=== PATIENT | male | born 1965 | race Caucasian/White ===

== ENCOUNTER 2018-07-26 10:24 | Observation (INO) | payer OTHER ==
[2018-07-26 11:22] LABS: BASO % 0.9 % (0-2.0); EOS % 2.3 % (0-4.5); HEMATOCRIT 45.9 % (35.4-49); HEMOGLOBIN 14.8 GM/dl (11.7-16.9); LYMPH % 34.1 % (8-40); MCH 27.4 pg (25.7-33.7); MCHC 32.3 g/dl (32.0-35.9); MEAN CELL VOLUME 84.9 fl (80-96); MEAN PLT VOLUME 9.7 fl (7.5-11.1); MONO % 7.1 % (3.8-10.2); NEUT % 55.6 % (42.8-82.8); PLATELET COUNT 206 K/MM3 (134-434); RDW 12.8 % (11.9-15.9); WHITE BLOOD COUNT 7.5 K/mm3 (4.0-10.8)
[2018-07-26 11:30] LABS: ALK PHOS 107 U/L (32-92); ANION GAP 5 MMOL/L (8-16); BILIRUBIN,TOTAL 0.5 mg/dl (0.2-1.0); BLOOD UREA NITROGEN 18 mg/dl (7-18); CALCIUM 9.2 mg/dl (8.4-10.2); CHLORIDE 109 mmol/L (98-107); CO2 24 mmol/L (22-28); CREATININE 0.9 mg/dl (0.6-1.3); GLUCOSE,RANDOM 108 mg/dl (74-106); MAGNESIUM 2.1 mg/dL (1.8-2.4); POTASSIUM 4.2 mmol/L (3.5-5.1); SGOT/AST 26 U/L (10-42); SGPT/ALT 28 U/L (10-40); SODIUM 138 mmol/L (136-145); TOT PROT 7.2 g/dl (6.4-8.3)
--- NOTE | 2018-07-26 11:33 | PDOC ---
History of Present Illness - General History Source: Patient Exam Limitations: No Limitations - History of Present Illness Initial Comments: 07/26/18 12:35 53 yo M with no past medical history (last saw his PMD 3 years ago) presents to the emergency department with chest pain that woke him from sleep at 6am. Per the patient, he states the pain is located on both sides of his chest, sudden onset, 6/10, constant, described as stabbing, and no aggravating or elieving factors. Denies the pain worsens with exertion, radiates to the neck/arms/back. Endorses having acid in his mouth prior to presentation. Denies the following: fevers, chills, nausea, vomiting, SOB, abdominal pain, traumatic events, diarrhea, constipation, dysuria, hematuria, hematochezia, and leg pain/swelling Familial hx: Paternal [place] (83 years old) Pmhx: None Shx: Right elbow Meds: None Allergies: NKDA Social: Denies tobacco, alcohol, and substance abuse. <Yuri Montanez - Last Filed: 07/27/18 10:51> <Glory Arnold - Last Filed: 07/29/18 22:19> - General Chief Complaint: Chest Pain Stated Complaint: CHEST PAIN Time Seen by Provider: 07/26/18 10:34 Past History - Past Medical History COPD: No - Suicide/Smoking/Psychosocial Hx Smoking History: Never smoked Hx Alcohol Use: Yes (RARE) Drug/Substance Use Hx: No <Yuri Montanez - Last Filed: 07/27/18 10:51> <Glory Arnold - Last Filed: 07/29/18 22:19> - Past Medical History Allergies/Adverse Reactions: Allergies Allergy/AdvReac Type Severity Reaction Status Date / Time No Known Allergies Allergy Unverified 07/26/18 10:29 Home Medications: Ambulatory Orders NK [No Known Home Medication] 07/26/18 Review of Systems - Review of Systems Able to Perform ROS?: Yes Is the patient limited Niuean proficient: No Constitutional: No: Chills, Diaphoresis, Fever HEENTM: No: Eye Pain, Recent change in vision, Ear Pain, Nose Pain, Throat Pain , Mouth Pain Respiratory: No: Cough, Shortness of Breath, SOB with Exertion, Hemoptysis Cardiac (ROS): Yes: Chest Pain. No: Lightheadedness, Palpitations, Syncope, Chest Tightness ABD/GI: No: Constipated, Diarrhea, Nausea, Poor Appetite, Poor Fluid Intake, Rectal Bleeding, Vomiting, Indigestion, Abdominal cramping, Tarry Stools : No: Burning, Dysuria, Hematuria, Urgency Musculoskeletal: No: Back Pain, Joint Pain, Neck Pain Integumentary: No: Bruising, Dryness, Erythema, Lesions, Lumps, Rash Neurological: No: Headache, Numbness, Tingling, Tremors, Ataxia, Dizziness Psychiatric: No: Stressors Endocrine: No: Unexplained Weight Gain Hematologic/Lymphatic: No: Anemia <TaconiteYuri - Last Filed: 07/27/18 10:51> *Physical Exam - Vital Signs Last Vital Signs Temp Pulse Resp BP Pulse Ox 98.6 F 69 15 134/82 97 07/26/18 10:29 07/26/18 11:00 07/26/18 11:00 07/26/18 11:00 07/26/18 11:00 - Physical Exam General Appearance: Yes: Nourished, Appropriately Dressed. No: Apparent Distress, Alcohol on Breath, Intoxicated HEENT: positive: EOMI, PETEY, Normal Voice, Symmetrical, Pharynx Normal, Hearing Grossly Normal. negative: Pale Conjunctivae, Scleral Icterus (R), Scleral Icterus (L), Muffled/Hoarse voice, Pharyngeal Erythema, Tonsillar Exudate, Tonsillar Erythema, Nasal Congestion, Sinus Tenderness, Excessive drooling Neck: positive: Trachea midline. negative: Tender, Lymphadenopathy (R), Lymphadenopathy (L), Tender lateral, Tender midline Respiratory/Chest: positive: Chest Tender (reproducible pain), Lungs Clear, Normal Breath Sounds. negative: Respiratory Distress, Accessory Muscle Use, Paradoxal Breathing, Crackles, Rales, Rhonchi, Stridor, Wheezing, Hyperresonant Cardiovascular: positive: Regular Rhythm, Regular Rate, S1, S2. negative: Systolic Murmur Gastrointestinal/Abdominal: positive: Normal Bowel Sounds, Tender (epigastric tenderness), Flat, Soft Lymphatic: negative: Adenopathy Musculoskeletal: positive: Normal Inspection. negative: CVA Tenderness, Vertebral Tenderness Extremity: positive: Normal Capillary Refill, Normal Inspection, Normal Range of Motion. negative: Tender Integumentary: positive: Normal Color, Dry, Warm. 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 negative: EOM Palsy, Sensory Deficit <Yuri Montanez - Last Filed: 07/27/18 10:51> - Vital Signs Last Vital Signs Temp Pulse Resp BP Pulse Ox 97.6 F 63 18 125/73 96 07/27/18 14:00 07/27/18 14:00 07/27/18 16:00 07/27/18 14:00 07/27/18 16:00 <Glory Arnold - Last Filed: 07/29/18 22:19> Moderate Sedation - Procedure Monitoring Vital Signs: Procedure Monitoring Vital Signs Temperature 98.6 F 07/26/18 10:29 Pulse Rate 69 07/26/18 11:00 Respiratory Rate 15 07/26/18 11:00 Blood Pressure 134/82 07/26/18 11:00 O2 Sat by Pulse Oximetry (%) 97 07/26/18 11:00 <Yuri Montanez - Last Filed: 07/27/18 10:51> - Procedure Monitoring Vital Signs: Procedure Monitoring Vital Signs Temperature 97.6 F 07/27/18 14:00 Pulse Rate 63 07/27/18 14:00 Respiratory Rate 18 07/27/18 16:00 Blood Pressure 125/73 07/27/18 14:00 O2 Sat by Pulse Oximetry (%) 96 07/27/18 16:00 <Glory Arnold - Last Filed: 07/29/18 22:19> Heart Score/ECG Review - History History: Moderately suspicious - Electrocardiogram EKG: Normal - Age Age: 45-65 - Risk Factors Risk Factors Heart Score: Yes Positive family hx of cardiac disease Based on the list above the patient has:: 1-2 risk factors - Troponin Troponin: </= normal limit - Score Heart Score - Total: 3 - ECG Intrepretation Comment:: 07/26/18 12:41 ventricular rate is 62 bpm, OK 180 ms, QRS is 106, and QTc is 403 ms. Normal sinus rhythm without ST elevations and depressions without arrhythmias. <Yuri Montanez - Last Filed: 07/27/18 10:51> ED Treatment Course - LABORATORY CBC & Chemistry Diagram: 07/27/18 07:35 07/27/18 07:35 - ADDITIONAL ORDERS Additional order review: Laboratory Results 07/26/18 11:00 Sodium 138 Potassium 4.2 Chloride 109 H Carbon Dioxide 24 Anion Gap 5 L BUN 18 Creatinine 0.9 Creat Clearance w eGFR > 60 Random Glucose 108 H Calcium 9.2 Magnesium 2.1 Total Bilirubin 0.5 AST 26 ALT 28 Alkaline Phosphatase 107 H Total Protein 7.2 Albumin 4.0 07/26/18 11:00 RBC 5.40 MCV 84.9 MCHC 32.3 RDW 12.8 MPV 9.7 Neutrophils % 55.6 Lymphocytes % 34.1 Monocytes % 7.1 Eosinophils % 2.3 Basophils % 0.9 <Yuri Montanez - Last Filed: 07/27/18 10:51> - LABORATORY CBC & Chemistry Diagram: 07/27/18 07:35 07/27/18 07:35 - ADDITIONAL ORDERS Additional order review: 07/26/18 11:00 RBC 5.40 MCV 84.9 MCHC 32.3 RDW 12.8 MPV 9.7 Neutrophils % 55.6 Lymphocytes % 34.1 Monocytes % 7.1 Eosinophils % 2.3 Basophils % 0.9 - RADIOLOGY Radiology Studies Ordered: Category Date Time Status CHEST PA & LAT [RAD] Stat Radiology 07/26/18 10:34 Completed - Medications Given in the ED: ED Medications Discontinued Medications Generic Name Dose Route Start Last Admin Trade Name Debbi PRN Reason Stop Dose Admin Aspirin 81 mg 07/26/18 19:30 07/27/18 09:46 Ecotrin - PO 81 mg DAILY KEREN Administration <Glory Arnold - Last Filed: 07/29/18 22:19> Medical Decision Making - Medical Decision Making 53 yo M with no past medical history (last saw his PMD 3 years ago) presents to the emergency department with chest pain that woke him from sleep at 6am. Initial vitals: Initial Vital Signs Temp Pulse Resp BP Pulse Ox 98.6 F 70 16 167/83 97 07/26/18 10:29 07/26/18 10:29 07/26/18 10:29 07/26/18 10:29 07/26/18 10:29 Work up: acs vs PNA vs costochondritis vs pleuritis vs URI Laboratory Tests 07/26/18 07/26/18 07/26/18 11:00 11:00 11:00 WBC 7.5 RBC 5.40 Hgb 14.8 Hct 45.9 MCV 84.9 MCH 27.4 MCHC 32.3 RDW 12.8 Plt Count 206 MPV 9.7 Absolute Neuts (auto) 4.1 Neutrophils % 55.6 Lymphocytes % 34.1 Monocytes % 7.1 Eosinophils % 2.3 Basophils % 0.9 PT with INR 10.8 INR 0.96 L PTT (Actin FS) Sodium 138 Potassium 4.2 Chloride 109 H Carbon Dioxide 24 Anion Gap 5 L BUN 18 Creatinine 0.9 Creat Clearance w eGFR > 60 Random Glucose 108 H Calcium 9.2 Magnesium 2.1 Total Bilirubin 0.5 AST 26 ALT 28 Alkaline Phosphatase 107 H Troponin I B-Natriuretic Peptide Total Protein 7.2 Albumin 4.0 07/26/18 07/26/18 07/26/18 11:00 11:00 11:00 WBC RBC Hgb Hct MCV MCH MCHC RDW Plt Count MPV Absolute Neuts (auto) Neutrophils % Lymphocytes % Monocytes % Eosinophils % Basophils % PT with INR INR PTT (Actin FS) 27.2 Sodium Potassium Chloride Carbon Dioxide Anion Gap BUN Creatinine Creat Clearance w eGFR Random Glucose Calcium Magnesium Total Bilirubin AST ALT Alkaline Phosphatase Troponin I < 0.03 B-Natriuretic Peptide 28.6 Total Protein Albumin trops first set negative. patients EKG did not show ST elevations or depressions. patient has no PMD follow up. given patients lack of primary medical care, i suspect he has more medical problems than reported. patient is a moderate risk and should be admitted for observation to rule out ACS causes of chest pain. will admit to obs tele. <Yuri Montanez - Last Filed: 07/27/18 10:51> *DC/Admit/Observation/Transfer <Yuri Montanez - Last Filed: 07/27/18 10:51> - Discharge Dispostion Decision to Admit order: Yes <Glory Arnold - Last Filed: 07/29/18 22:19> Diagnosis at time of Disposition: Chest pain Qualifiers: Chest pain type: unspecified Qualified Code(s): R07.9 - Chest pain, unspecified - Discharge Dispostion Condition at time of disposition: Good
[2018-07-26 11:50] LABS: INR 0.96 (0.82-1.09); PROTHROMBIN TIME (PATIENT) 10.8 SEC (10.2-13.0)
--- NOTE | 2018-07-26 12:48 | PDOC ---
Attending Attestation - Resident Resident Name: TarikYuri - ED Attending Attestation I have performed the following: I have examined & evaluated the patient, The case was reviewed & discussed with the resident, I agree w/resident's findings & plan - HPI HPI: 07/26/18 12:46 Jarrell Mccauley 53 YOM with no known medical history p/w acute onset of bilateral chest pain, nonradiating, nonexertional, 6/10, stabbing, no relieving or exacerbating factors, constant. a/w SOB. No trauma. No f/c, cough, congestion. +acid reflux sx this morning. +family history of cardiac history, father with [place] in 80s. - Physicial Exam PE: 07/26/18 12:46 NAD, well appearing, PERRL, EOMI, MMM, nl conjunctiva, anicteric; neck supple. lungs clear, RRR, abdomen soft mild epigastric TTP. ODONNELL x4, no focal neuro deficits. No peripheral edema. normal color for ethnicity, WWP. - Medical Decision Making 07/26/18 12:47 See HPI for details Vital signs reviewed, wnl. Prior notes reviewed, including admissions, discharges and consultations. laboratory results and imaging reviewed, basic labs and lytes wnl CXR_neg Cardiac panel_neg trop x1, reassuring. delta trops/serial ekgs. EKG normal sinus rhythm, no interval abnormalities, narrow QRS, ST and T wave segments and morphology normal. ED course: uncomplicated, no acute events. no PMD followup, so will need to admit for risk stratification and workup for r/ o ACS/angina. alternative etiology could be GERD vs esophageal spasm vs costochondritis/msk. Dispo: admit for r/o ACS, chest pain eval. tele observation. s/o to EMILIA Butler 07/26/18 13:16 07/26/18 13:17 Heart Score/ECG Review - ECG Impressions Normal ECG: Yes Comment:: 07/26/18 12:48 EKG normal sinus rhythm, no interval abnormalities, narrow QRS, ST and T wave segments and morphology normal.
--- NOTE | 2018-07-26 13:12 | HP ---
CHIEF COMPLAINT: Chest pain PCP: None HISTORY OF PRESENT ILLNESS: 53 year-old male with no reported PMH presented to the ED today with a complaint of chest pain that woke him from sleep at 6am. Per the patient, he pain was located on both sides of his upper chest. He went to work but when the pain persisted he called his son to bring him to the ED. The pain waxed and waned with no exacerbating or alleviating factors. Patient denies palpitations, diaphoresis, lightheadedness, SOB, TINEO, orthopnea, or lower extremity edema. Patient denies fever, sweats, chills. 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 Familial hx: Paternal [place] (83 years old) Pmhx: None Shx: Right elbow Meds: None Allergies: NKDA Social: Denies tobacco, alcohol, and substance abuse. 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 Smoking: never Alcohol: social Drugs: no Family History: Mother 53 cancer; father 83 [place]; brother 48 accident; two siblings a&w; 2 sons a&w Allergies No Known Allergies Allergy (Unverified 07/26/18 10:29) HOME MEDICATIONS: Home Medications Medication Instructions Recorded NK [No Known Home Medication] 07/26/18 REVIEW OF SYSTEMS CONSTITUTIONAL: Absent: fever, chills, diaphoresis, generalized weakness, malaise, loss of appetite, weight change HEENT: Absent: rhinorrhea, nasal congestion, throat pain, throat swelling, difficulty swallowing, mouth swelling, ear pain, eye pain, visual changes CARDIOVASCULAR: +chest pain Absent: chest pain, syncope, palpitations, irregular heart rate, lightheadedness , peripheral edema RESPIRATORY: Absent: cough, shortness of breath, dyspnea with exertion, orthopnea, wheezing, stridor, hemoptysis GASTROINTESTINAL: Absent: abdominal pain, abdominal distension, nausea, vomiting, diarrhea, constipation, melena, hematochezia GENITOURINARY: Absent: dysuria, frequency, urgency, hesitancy, hematuria, flank pain, genital pain MUSCULOSKELETAL: Absent: myalgia, arthralgia, joint swelling, back pain, neck pain SKIN: Absent: rash, itching, pallor HEMATOLOGIC/IMMUNOLOGIC: Absent: easy bleeding, easy bruising, lymphadenopathy, frequent infections ENDOCRINE: Absent: unexplained weight gain, unexplained weight loss, heat intolerance, cold intolerance NEUROLOGIC: Absent: headache, focal weakness or paresthesias, dizziness, unsteady gait, seizure, mental status changes, bladder or bowel incontinence PSYCHIATRIC: Absent: anxiety, depression, suicidal or homicidal ideation, hallucinations. PHYSICAL EXAMINATION Vital Signs - 24 hr 07/26/18 07/26/18 07/26/18 10:29 11:00 12:00 Temperature 98.6 F Pulse Rate 70 Pulse Rate [ 69 61 Apical] Respiratory 16 15 17 Rate Blood Pressure 167/83 Blood Pressure 134/82 136/76 [Right Arm] O2 Sat by Pulse 97 97 98 Oximetry (%) GENERAL: Awake, alert, and fully oriented, in no acute distress. HEAD: Normal with no signs of trauma. EYES: Pupils equal, round and reactive to light, extraocular movements intact, sclera anicteric, conjunctiva clear. No lid lag. EARS, NOSE, THROAT: Ears normal, nares patent, oropharynx clear without exudates. Moist mucous membranes. NECK: Normal range of motion, supple without lymphadenopathy, JVD, or masses. LUNGS: Breath sounds equal, clear to auscultation bilaterally. No wheezes, and no crackles. No accessory muscle use. HEART: Regular rate and rhythm, normal S1 and S2 without murmur, rub or gallop. Mid-sternal chest pain reproducible on exam ABDOMEN: Soft, nontender, not distended, normoactive bowel sounds, no guarding, no rebound, no masses. No hepatomegaly or splenomegaly. MUSCULOSKELETAL: Normal range of motion at all joints. No bony deformities or tenderness. No CVA tenderness. UPPER EXTREMITIES: 2+ pulses, warm, well-perfused. No cyanosis. No clubbing. No peripheral edema. LOWER EXTREMITIES: 2+ pulses, warm, well-perfused. No calf tenderness. No peripheral edema. NEUROLOGICAL: Cranial nerves II-XII intact. Normal speech. 07/26/18 07/26/18 07/26/18 11:00 11:00 11:00 WBC 7.5 RBC 5.40 Hgb 14.8 Hct 45.9 MCV 84.9 MCH 27.4 MCHC 32.3 RDW 12.8 Plt Count 206 MPV 9.7 Absolute Neuts (auto) 4.1 Neutrophils % 55.6 Lymphocytes % 34.1 Monocytes % 7.1 Eosinophils % 2.3 Basophils % 0.9 PT with INR 10.8 INR 0.96 L Sodium 138 Potassium 4.2 Chloride 109 H Carbon Dioxide 24 Anion Gap 5 L BUN 18 Creatinine 0.9 Creat Clearance w eGFR > 60 Random Glucose 108 H Calcium 9.2 Magnesium 2.1 Total Bilirubin 0.5 AST 26 ALT 28 Alkaline Phosphatase 107 H Troponin I Total Protein 7.2 Albumin 4.0 07/26/18 11:00 WBC RBC Hgb Hct MCV MCH MCHC RDW Plt Count MPV Absolute Neuts (auto) Neutrophils % Lymphocytes % Monocytes % Eosinophils % Basophils % PT with INR INR Sodium Potassium Chloride Carbon Dioxide Anion Gap BUN Creatinine Creat Clearance w eGFR Random Glucose Calcium Magnesium Total Bilirubin AST ALT Alkaline Phosphatase Troponin I < 0.03 Total Protein Albumin ASSESSMENT/PLAN 53 year-old male with no significant PMH placed on observation for chest pain. Chest pain --troponin neg x 1, 2 pending --ECG: not suggestive of acute ischemic event --CXR unremarkable --BP stable, not on anti-hypertensives --Echo ordered --EST ordered --NPO after midnight --cardiology consult requested --ASA 81mg daily FEN Fluids: PO intake adequate Electrolytes: replete as indicated Nutrition: low sodium diet DVT prophylaxis: oob, ambulation Dispo: continues to require observation. Full code. Visit type - Emergency Visit Emergency Visit: Yes ED Registration Date: 07/26/18 Care time: The patient presented to the Emergency Department on the above date and was hospitalized for further evaluation of their emergent condition. - New Patient This patient is new to me today: Yes Date on this admission: 07/26/18 - Critical Care Critical Care patient: No
[2018-07-26 15:31] LABS: URINE APPEARANCE Clear; URINE BILIRUBIN Negative (NEGATIVE); URINE COLOR Yellow; URINE GLUCOSE (UA) Negative (NEGATIVE); URINE KETONE Negative (NEGATIVE); URINE LEUK ESTERASE Negative (NEGATIVE); URINE NITRITE Negative (NEGATIVE); URINE PROTEIN Negative (NEGATIVE); URINE UROBILINOGEN 0.2 (0.2-1.0)
[2018-07-26 16:44] VITALS: BMI 29.2
[2018-07-26] MEDS: ASPIRIN COATED 81 MG TABLET.EC PO SCH (19:30)
[2018-07-26 20:26] LABS: N-TERMINAL BNP 26.4 pg/ml (5-125)
[2018-07-26] MEDS ORDERED: HEPARIN NA (PORCINE) 5,000 UNITS/ML 1ML VIAL SQ SCH (22:00)
[2018-07-27 08:11] LABS: BASO % 0.8 % (0-2.0); EOS % 3.1 % (0-4.5); HEMATOCRIT 45.8 % (35.4-49); HEMOGLOBIN 14.9 GM/dl (11.7-16.9); LYMPH % 24.9 % (8-40); MCH 27.8 pg (25.7-33.7); MCHC 32.6 g/dl (32.0-35.9); MEAN CELL VOLUME 85.1 fl (80-96); MEAN PLT VOLUME 9.9 fl (7.5-11.1); MONO % 6.6 % (3.8-10.2); NEUT % 64.6 % (42.8-82.8); PLATELET COUNT 181 K/MM3 (134-434); RBC 5.38 M/mm3 (4.00-5.60); RDW 13.1 % (11.9-15.9); WHITE BLOOD COUNT 8.1 K/mm3 (4.0-10.8)
[2018-07-27 08:25] LABS: ALBUMIN 3.7 g/dl (3.5-5.0); ALK PHOS 91 U/L (32-92); ANION GAP 4 MMOL/L (8-16); BILIRUBIN,TOTAL 0.6 mg/dl (0.2-1.0); BLOOD UREA NITROGEN 16 mg/dl (7-18); CHLORIDE 105 mmol/L (98-107); CO2 27 mmol/L (22-28); CREATININE 0.9 mg/dl (0.6-1.3); GLUCOSE,RANDOM 93 mg/dl (74-106); MAGNESIUM 2.1 mg/dL (1.8-2.4); POTASSIUM 4.6 mmol/L (3.5-5.1); SGOT/AST 22 U/L (10-42); SGPT/ALT 27 U/L (10-40); SODIUM 136 mmol/L (136-145); TOT PROT 6.8 g/dl (6.4-8.3)
[2018-07-27] MEDS: ASPIRIN COATED 81 MG TABLET.EC PO SCH (09:46)
--- NOTE | 2018-07-27 12:15 | EKG ---
Test Reason : Blood Pressure : / mmHG Vent. Rate : 048 BPM Atrial Rate : 048 BPM P-R Int : 186 ms QRS Dur : 102 ms QT Int : 436 ms P-R-T Axes : 027 -43 061 degrees QTc Int : 389 ms SINUS BRADYCARDIA LEFT AXIS DEVIATION PULMONARY DISEASE PATTERN ABNORMAL ECG WHEN COMPARED WITH ECG OF 26-JUL-2018 10:49, NO SIGNIFICANT CHANGE WAS FOUND Confirmed by PEDRO ARECHIGA MD ([id number]) on 07/27/2018 12:15:46 PM Referred By: Sreekanth Gautam Confirmed By:PEDRO ARECHIGA MD
--- NOTE | 2018-07-27 12:16 | EKG ---
Test Reason : Blood Pressure : / mmHG Vent. Rate : 062 BPM Atrial Rate : 062 BPM P-R Int : 180 ms QRS Dur : 106 ms QT Int : 398 ms P-R-T Axes : 026 -64 064 degrees QTc Int : 403 ms NORMAL SINUS RHYTHM PULMONARY DISEASE PATTERN LEFT ANTERIOR FASCICULAR BLOCK ABNORMAL ECG NO PREVIOUS ECGS AVAILABLE Confirmed by PEDRO ARECHIGA MD ([id number]) on 07/27/2018 12:16:05 PM Referred By: Sreekanth Gautam Confirmed By:PEDRO ARECHIGA MD
[2018-07-27 14:31] VITALS: BP 125/73; PULSE 63; TEMP 97.6
--- NOTE | 2018-07-27 14:47 | ECHO ---
Name: DEBRA DONOVANAILYN KELLEY Exam:Adult Echocardiogram Study Date: 07/27/2018 09:03 AM Age: 53 yrs Reason For Study: CP Height: 70 in Weight: 205 lb BSA: 2.1 m2 MMode/2D Measurements & Calculations IVSd: 0.87 cm Ao root diam: 3.1 cm LVIDd: 5.1 cm LA dimension: 4.9 cm LVIDs: 3.3 cm LVPWd: 0.86 cm EDV(Teich): 122.6 ml LVOT diam: 2.0 cm ESV(Teich): 42.8 ml Doppler Measurements & Calculations MV E max behzad: 79.8 cm/sec TR max behzad: 223.8 cm/sec MV A max behzad: 60.6 cm/sec TR max P.2 mmHg MV E/A: 1.3 Procedure A complete two-dimensional transthoracic echocardiogram was performed (2D, M-mode, Doppler and color flow Doppler). Left Ventricle The left ventricular size, thickness and function are normal. The left ventricular ejection fraction is normal. Ejection Fraction = 60-65%. The left ventricular wall motion is normal. Right Ventricle The right ventricle is normal in size and function. Atria Normal left and right atrial size and function. Mitral Valve There is no mitral regurgitation noted. Tricuspid Valve There is mild tricuspid regurgitation. Right ventricular systolic pressure is normal. Aortic Valve The aortic valve is trileaflet. No hemodynamically significant valvular aortic stenosis. No aortic regurgitation is present. Pulmonic Valve There is no pulmonic valvular regurgitation. Great Vessels The aortic root is normal size. Pericardium/Pleura There is no pericardial effusion. Interpretation Summary The left ventricular size, thickness and function are normal The right ventricle is normal in size and function. There is mild tricuspid regurgitation. MD Man Alvarez 07/27/2018 02:47 PM
--- NOTE | 2018-07-27 15:13 | CON.CARD ---
Consult Consult Specialty:: cardiology Referred by:: Luke Reason for Consultation:: chest pain, bradycardia - History of Present Illness Chief Complaint: chest pain History of Present Illness: 53M no PMH p/w chest pain. Not exertional both sides of chest. no palps, dyspnea, diaphoresis, lightheadedness, SOB, edema. 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 Trop neg x 3. Noted to have bradycardia on tele with HR 40s especially during sleep, deep breaths. Snores when sleeping at home. - Alcohol/Substance Use Hx Alcohol Use: Yes (RARE) - Smoking History Smoking history: Never smoked Home Medications - Allergies Allergies/Adverse Reactions: Allergies Allergy/AdvReac Type Severity Reaction Status Date / Time No Known Allergies Allergy Unverified 07/26/18 10:29 - Home Medications Home Medications: Ambulatory Orders NK [No Known Home Medication] 07/26/18 Family Disease History - Family Disease History Family History: Unremarkable Review of Systems - Review of Systems Constitutional: reports: No Symptoms Eyes: reports: No Symptoms HENT: reports: No Symptoms Neck: reports: No Symptoms Cardiovascular: reports: Chest Pain Respiratory: reports: No Symptoms Gastrointestinal: reports: No Symptoms Genitourinary: reports: No Symptoms Musculoskeletal: reports: No Symptoms Integumentary: reports: No Symptoms Neurological: reports: No Symptoms Endocrine: reports: No Symptoms Hematology/Lymphatic: reports: No Symptoms Psychiatric: reports: No Symptoms Vital Signs: Vital Signs Temperature 97.6 F 07/27/18 14:00 Pulse Rate 63 07/27/18 14:00 Respiratory Rate 18 07/27/18 14:00 Blood Pressure 125/73 07/27/18 14:00 O2 Sat by Pulse Oximetry (%) 96 07/27/18 14:00 Constitutional: Yes: Well Nourished, No Distress, Calm Eyes: Yes: Conjunctiva Clear, EOM Intact HENT: Yes: Atraumatic, Normocephalic Neck: Yes: Supple, Trachea Midline Respiratory: Yes: Regular, CTA Bilaterally Gastrointestinal: Yes: Normal Bowel Sounds, Soft Cardiovascular: Yes: Regular Rate and Rhythm JVD: No Carotid Bruit: No PMI: Non-Displaced Heart Sounds: Yes: S1, S2 Murmur: No: Systolic Murmur Musculoskeletal: No: Back Pain Extremities: No: Cold Edema: No Peripheral Pulses WNL: Yes Peripheral Pulses: 2+ Left Carotid, 2+ Right Carotid, 2+ Left Doralis Pedis, 2+ Right Dorsalis Pedis Integumentary: No: Jaundice Neurological: Yes: Alert, Oriented Psychiatric: Yes: Alert, Oriented - Other Data Labs, Other Data: CBC, BMP 07/27/18 07:35 07/27/18 07:35 INR, PTT INR 0.96 (0.82-1.09) L 07/26/18 11:00 Troponin, BNP 07/26/18 07/27/18 18:50 01:21 Troponin I < 0.02 < 0.02 B-Natriuretic Peptide 26.4 Troponin, BNP 07/26/18 07/27/18 18:50 01:21 Troponin I < 0.02 < 0.02 B-Natriuretic Peptide 26.4 Assessment/Plan echo 07/2018 nl LV/RV function, mild TR EKG: sinus bradycardia, LAD tele: sinus, sinus bradycardia chest pain - atypical presentation, happened with turning in sleep - trop neg x 3, echo unremarkable, EKG no ischemic changes - no further testing at this point, follow up in clinic in 2-4 weeks Bradycardia - sinus malia noted on monitoring especially when sleeping, deep breaths with appropriate increase in heart rate noted on tele when awake, walking - would consider outpatient sleep study given more prominent with sleep and hx snoring, advised patient to follow up as outpatient
--- NOTE | 2018-07-27 16:38 | DS ---
Physical Exam: SUBJECTIVE: Patient seen and examined OBJECTIVE: Vital Signs Period Temp Pulse Resp BP Sys/Purcell Pulse Ox Last 24 Hr 97.6 F-98.4 F 52-63 18-19 116-137/70-76 94-96 PHYSICAL EXAM GENERAL: The patient is awake, alert, and fully oriented, in no acute distress. HEAD: Normal with no signs of trauma. EYES: PERRL, extraocular movements intact, sclera anicteric, conjunctiva clear. ENT: Ears normal, nares patent, oropharynx clear without exudates, moist mucous membranes. NECK: Trachea midline, full range of motion, supple. LUNGS: Breath sounds equal, clear to auscultation bilaterally, no wheezes, no crackles, no accessory muscle use. HEART: Regular rate and rhythm, S1, S2 without murmur, rub or gallop. ABDOMEN: Soft, nontender, nondistended, normoactive bowel sounds, no guarding, no rebound, no hepatosplenomegaly, no masses. EXTREMITIES: 2+ pulses, warm, well-perfused, no edema. NEUROLOGICAL: Cranial nerves II through XII grossly intact. Normal speech, gait not observed. PSYCH: Normal mood, normal affect. SKIN: Warm, dry, normal turgor, no rashes or lesions noted. LABS Laboratory Results - last 24 hr 07/26/18 07/27/18 07/27/18 18:50 01:21 07:35 WBC 8.1 RBC 5.38 Hgb 14.9 Hct 45.8 MCV 85.1 MCH 27.8 MCHC 32.6 RDW 13.1 Plt Count 181 MPV 9.9 Absolute Neuts (auto) 5.2 Neutrophils % 64.6 Lymphocytes % 24.9 D Monocytes % 6.6 Eosinophils % 3.1 Basophils % 0.8 Sodium Potassium Chloride Carbon Dioxide Anion Gap BUN Creatinine Creat Clearance w eGFR Random Glucose Calcium Magnesium Total Bilirubin AST ALT Alkaline Phosphatase Troponin I < 0.02 < 0.02 B-Natriuretic Peptide 26.4 Total Protein Albumin 07/27/18 07:35 WBC RBC Hgb Hct MCV MCH MCHC RDW Plt Count MPV Absolute Neuts (auto) Neutrophils % Lymphocytes % Monocytes % Eosinophils % Basophils % Sodium 136 Potassium 4.6 Chloride 105 Carbon Dioxide 27 Anion Gap 4 L BUN 16 Creatinine 0.9 Creat Clearance w eGFR > 60 Random Glucose 93 Calcium 9.0 Magnesium 2.1 Total Bilirubin 0.6 AST 22 ALT 27 Alkaline Phosphatase 91 D Troponin I B-Natriuretic Peptide Total Protein 6.8 Albumin 3.7 HOSPITAL COURSE: Date of Admission:07/26/18 Date of Discharge: 07/27/18 Minutes to complete discharge: 35 Discharge Summary Reason For Visit: CHEST PAIN Current Active Problems Chest pain (Acute) Condition: Improved - Instructions Diet, Activity, Other Instructions: You are being discharged today from the hospital. It is recommended you follow up with Dr. Zimmerman's office in 2-4 weeks. It is also recommended that you have a sleep study performed to assess you for possible sleep apnea. There is a sleep study center here at [place] and you can call to make an appointment to be evaluated. Return to the emergency department for any new or worsening symptoms. Referrals: Malathi Zimmerman MD [Staff Physician] - 2 Weeks Disposition: HOME - Home Medications Comprehensive Discharge Medication List: Ambulatory Orders NK [No Known Home Medication] 07/26/18 This patient is new to me today: No Emergency Visit: Yes ED Registration Date: 07/26/18 Care time: The patient presented to the Emergency Department on the above date and was hospitalized for further evaluation of their emergent condition. Critical Care patient: No - Discharge Referral Referred to [facility] No
== END 2018-07-27 17:08 | disposition home or self-care (01) ==
LOC: FER 10:24 → FM/S 14:18
PROVIDERS: ADMIT Internal Medicine; ATTEND Nurse Practitioner Acute Care
DX: R07.9 Chest pain, unspecified (principal); R00.1 Bradycardia, unspecified
CPT/HCPCS: 36415; 71046-TC-FY; 80053; 81003; 83735; 83880; 84484; 85025; 85610; 85730; 93005; 93306-TC; 99285-25; G0378